=== PATIENT | male | born 1980 | race Two or more races ===

== ENCOUNTER 2018-08-24 10:02 | Emergency (ER) | payer MEDICAID ==
[~2018-08-24] VITALS: Ht 177.8 cm; Wt 118.0 kg
[2018-08-24 10:16] VITALS: BP 114/68
[2018-08-24] MEDS ORDERED: IBUPROFEN 200 MG TABLET ONE (10:33)
[2018-08-24] MEDS ORDERED: IBUPROFEN 200 MG TABLET PO ONE (11:00)
== END 2018-08-24 11:09 | disposition home or self-care (01) ==
LOC: ED 11:00
DX: S90.32XA Contusion of left foot, initial encounter (principal); F17.200 Nicotine dependence, unspecified, uncomplicated; W20.8XXA Other cause of strike by thrown, projected or falling object, initial encounter; Y93.B3 Activity, free weights; Y92.39 Other specified sports and athletic area as the place of occurrence of the external cause; Y99.8 Other external cause status
CPT/HCPCS: 99284

== ENCOUNTER 2020-05-26 13:04 | Emergency (ER) | payer MEDICAID, OTHER ==
[~2020-05-26] VITALS: Ht 177.8 cm; Wt 122.7 kg
--- NOTE | 2020-05-26 14:00 | NUR ---
ER PA at bedside for evaluarion
--- NOTE | 2020-05-26 14:41 | NUR ---
pt resting in bed, call light in reach. [facility].
[2020-05-26 14:54] LABS: BASOPHILS # (AUTO) 0.03 x10^3/uL (0-0.1); BASOPHILS % (AUTO) 1 % (0-1); EOSINOPHILS # (AUTO) 0.05 x10^3/uL (0-0.4); EOSINOPHILS % (AUTO) 1 % (1-7); LYMPHOCYTES # (AUTO) 1.82 x10^3/uL (1-3.4); LYMPHOCYTES % (AUTO) 29 % (22-44); MD NO; MEAN CORPUSCULAR HEMOGLOBIN 31.8 pg (27.5-34.5); MEAN CORPUSCULAR HGB CONC 33.1 g/dL (33.2-36.2); MEAN CORPUSCULAR VOLUME 96.2 fL (81-97); MONOCYTES # (AUTO) 0.38 x10^3/uL (0.2-0.8); MONOCYTES % (AUTO) 6 % (2-9); NEUTROPHILS # (AUTO) 4.08 x10^3/uL (1.8-6.8); NEUTROPHILS % (AUTO) 64 % (42-75); PLATELET COUNT 286 x10^3/uL (130-400); RED BLOOD COUNT 5.22 x10^6/uL (4.38-5.82); RED CELL DISTRIBUTION WIDTH 13.4 % (9.4-14.8)
[2020-05-26 15:04] LABS: ALBUMIN 3.9 g/dL (3.4-5.0); ANION GAP 5 mmol/L (5-15); CALCIUM 8.8 mg/dL (8.5-10.1); CHLORIDE 110 mmol/L (98-107)
[2020-05-26 15:05] LABS: CREATININE 1.04 mg/dL (0.7-1.3)
--- NOTE | 2020-05-26 15:50 | NUR ---
ERMD AT BEDSIDE TO DISCUSS POC.
[2020-05-26 16:21] VITALS: BP 132/71
== END 2020-05-26 16:23 | disposition home or self-care (01) ==
LOC: ED 14:27
DX: R42 Dizziness and giddiness (principal); R51 Headache; H57.12 Ocular pain, left eye; I44.4 Left anterior fascicular block
CPT/HCPCS: 36415; 80048; 82040; 85025; 93005; 99285

== ENCOUNTER 2021-03-01 15:09 | Emergency (ER) | payer SELFPAY ==
[~2021-03-01] VITALS: Ht 177.8 cm; Wt 115.0 kg
[2021-03-01 15:52] VITALS: BP 124/56
[2021-03-01] MEDS ORDERED: RABIES IMMUNE GLOBULIN/PF 150 UNITS/ML, 2ML IM ONE (17:30)
[2021-03-01] MEDS ORDERED: RABIES VACCINE /PF 2.5 UNITS IM-VACC ONE (17:30)
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
--- NOTE | 2021-03-01 17:36 | NUR ---
Patient/Caregiver given discharge instructions and they have confirmed that they understand the instructions. Patient ambulatory with steady gait.
== END 2021-03-01 17:44 | disposition home or self-care (01) ==
LOC: ED 17:25
DX: S19.9XXA Unspecified injury of neck, initial encounter (principal); S69.91XA Unspecified injury of right wrist, hand and finger(s), initial encounter; X58.XXXA Exposure to other specified factors, initial encounter; Y93.89 Activity, other specified; Y92.89 Other specified places as the place of occurrence of the external cause; Y99.8 Other external cause status
CPT/HCPCS: 99283